=== PATIENT | female | born 1960 | race Caucasian/White ===

== ENCOUNTER 2020-11-29 08:19 | Emergency (ER) | payer OTHER, SELFPAY ==
[2020-11-29 08:21] VITALS: BP 145/98; PULSE 105; RESP 18; TEMP 36.2; O2SAT 98; BMI 25.9
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
== END 2020-11-29 09:50 | disposition home or self-care (01) ==
PROVIDERS: Emergency Provider Emergency Medicine; PCP Family Medicine
DX: S16.1XXA Strain of muscle, fascia and tendon at neck level, initial encounter (principal); S40.011A Contusion of right shoulder, initial encounter; V48.0XXA Car driver injured in noncollision transport accident in nontraffic accident, initial encounter; Z79.899 Other long term (current) drug therapy
CPT/HCPCS: 71046; 73030; 99284

== ENCOUNTER → 2022-03-15 | Outpatient (CLI) | payer OTHER, SELFPAY ==
[2022-03-15 13:07] LABS: CRP < 2.90 mg/L (0.0-3.0); Rheumatoid Factor < 10.0 IU/mL (<15)
[2022-03-15 13:25] LABS: Erythrocyte Sedimentation Rate 8 mm/hr (0-30)
[2022-03-16 16:17] LABS: ANTINUCLEAR ANTIBODIES DIRECT Negative (Negative)
== END | disposition home or self-care (01) ==
LOC: MFPLAB 09:46
PROVIDERS: PCP Family Medicine; Referring Provider Family Medicine; Visit Provider Family Medicine
DX: M79.89 Other specified soft tissue disorders (principal)
CPT/HCPCS: 36415; 85652; 86038; 86140; 86431

== ENCOUNTER → 2022-03-22 | Outpatient (CLI) | payer OTHER, SELFPAY ==
[2022-03-22 17:45] LABS: Absolute Lymphocyte Count 1.95 X10^3/uL (0.83-4.51); Absolute Neutrophil Count 3.1 X10^3/uL (2.0-7.7); Basophil# 0.08 X10^3/uL; Basophil% 1.4 % (0-1); Eosinophil# 0.11 X10^3/uL; Eosinophils% 1.9 % (0-5); Hematocrit 38.1 % (37-47); Hemoglobin 12.8 g/dL (12.0-15.0); Lymphocyte # 1.95 X10^3/ul (0.83-4.51); Lymphocyte % 34.5 % (19-41); Mean Corp Hgb Conc 33.6 g/dL (32-36); Mean Corpuscular Hgb 31.4 pg (27.0-32.0); Mean Corpuscular Volume 93.4 fL (81-99); Mean Platelet Vol. 10.2 fl (6.2-12.0); Monocyte% 7.1 % (0-10); NRBC Flagged by Analyzer 0 % (0-5); Neutrophil # 3.11 X10^3/uL (2.7-7.7); Neutrophil % 54.9 % (47-70); Platelet Count 282 K/mm3 (150-450); RBC Distribution Width CV 14.3 % (11.6-14.6); RBC Distribution Width SD 48.1 fl (35.1-43.9); Red Blood Count 4.08 M/mm3 (4.2-5.4); White Blood Count 5.7 K/mm3 (4.4-11.0)
[2022-03-22 18:00] LABS: Hemoglobin A1c 5.6 % (3.8-5.6)
[2022-03-22 18:08] LABS: ALB/GLOB Ratio 1.1 RATIO (0.9-2.4); AST(SGOT) 33 U/L (15-37); Alanine Aminotransfer ALT/SGPT 50 U/L (13-56); Albumin, Serum 3.4 g/dL (3.2-5.0); Alkaline Phosphatase 125 U/L (45-117); Anion Gap 6 (5-15); BUN 20 mg/dL (7-18); BUN/Creat Ratio 22.5 RATIO (10-20); Calcium,Total 8.2 mg/dL (8.5-10.1); Chloride 105 mmol/L (98-107); Creatinine, Serum 0.89 mg/dL (0.55-1.02); EST Glomerular Filtration Rate 69 mL/min (>60); Est Glom Filt Rate - Afr Amer 83 mL/min (>60); Globulin 3.2 g/dL (2.2-4.2); Glucose 136 mg/dL (74-106); Potassium 3.5 mmol/L (3.5-5.1); Protein, Total 6.6 g/dL (6.4-8.2); Sodium Level 139 mmol/L (136-145); Thyroid Stim Hormone (TSH) 0.99 uIU/mL (0.358-3.74)
[2022-03-22 18:18] LABS: Vitamin B12 503 pg/mL (211-911); Vitamin D,25 Hydroxy 32.3 ng/mL
== END | disposition home or self-care (01) ==
LOC: MFPLAB 15:51
PROVIDERS: PCP Family Medicine; Visit Provider Nurse Practitioner Family
DX: R20.0 Anesthesia of skin (principal)
CPT/HCPCS: 36415; 80053; 82306; 82607; 83036; 84443; 85025

== ENCOUNTER → 2022-04-13 | Outpatient (CLI) | payer OTHER, SELFPAY ==
[2022-04-13 10:42] LABS: Erythrocyte Sedimentation Rate 9 mm/hr (0-30)
[2022-04-13 11:17] LABS: CRP < 2.90 mg/L (0.0-3.0)
[2022-04-14 18:25] LABS: ANTINUCLEAR ANTIBODIES DIRECT Negative (Negative)
== END | disposition home or self-care (01) ==
LOC: MFPLAB 09:17
PROVIDERS: PCP Family Medicine; Referring Provider Family Medicine; Visit Provider Family Medicine
DX: L29.9 Pruritus, unspecified (principal)
CPT/HCPCS: 36415; 85652; 86038; 86140

== ENCOUNTER → 2022-06-12 | Outpatient (CLI) | payer OTHER, SELFPAY ==
--- NOTE | 2022-06-12 14:47 | NEURO ---
NCS and/or EMG Patient Report Ordering Doctor: Mason Valadez DATE OF SERVICE: 06/12/22 Indication: Bilateral hand numbness (left greater than right) for several months. Worse with sleep and activity. History of more chronic neck and right shoulder pain. Findings: Nerve conduction studies were performed in the right and left upper extremities. The right median motor study recording the abductor pollicis brevis showed a normal amplitude, prolonged distal latency and normal conduction velocity. The right ulnar motor study recording the abductor digiti minimi showed a normal amplitude, normal distal latency and normal conduction velocity. No conduction block or focal slowing was present across the elbow. The right median sensory response recording digit two showed a reduced amplitude, prolonged latency and slowed conduction velocity. The right ulnar sensory response recording digit five showed a normal amplitude, latency and conduction velocity. The right radial sensory response recording over the extensor snuff box showed a normal amplitude, latency and conduction velocity. The left median motor study recording the abductor pollicis brevis showed a slightly reduced amplitude, prolonged distal latency and slowed conduction velocity. The left ulnar motor study recording the abductor digiti minimi showed a normal amplitude, normal distal latency and normal conduction velocity. No conduction block or focal slowing was present across the elbow. The left median sensory response recording digit two was absent. The left ulnar sensory response recording digit five showed a normal amplitude, latency and conduction velocity. The left radial sensory response recording over the extensor snuff box showed a normal amplitude, latency and conduction velocity. Left median-ulnar lumbrical / interosseous motor latencies showed a prolonged median latency compared to the ulnar. Needle EMG of the right upper extremity and cervical paraspinal muscles was performed. No denervation was seen in any muscle. The right abductor pollicis brevis showed normal morphology, but mildly decreased recruitment. All other motor unit morphology, activation and recruitment patterns were normal. Needle EMG of the left upper extremity and cervical paraspinal muscles was performed. No denervation was seen in any muscle. Motor units in the abductor pollicis brevis were polyphasic, but otherwise unremarkable. All other motor unit morphology, activation and recruitment patterns were normal. Impression: This is an abnormal study. There is electrophysiologic evidence of median neuropathy across the wrist in both upper extremities (moderate on the left, mild on the right). These findings are compatible with the clinical diagnosis of carpal tunnel syndrome. In addition, there is no electrophysiologic evidence of superimposed cervical radiculopathy, brachial plexopathy or other entrapment neuropathy in either upper extremity. Jean Fuller D.O. Multi Select Codes Neurology Neurology Interp Codes: 42100-34 Musc test done w/n test comp (interp) (Qty:2) and 17724-10 Nr cndj test 13/> studies (interp)
== END | disposition home or self-care (01) ==
LOC: PSN 12:56
PROVIDERS: PCP Family Medicine; Visit Provider Family Medicine
DX: R20.2 Paresthesia of skin (principal)
CPT/HCPCS: 95886; 95913

== ENCOUNTER → 2022-07-05 | Outpatient (CLI) | payer OTHER, SELFPAY ==
--- NOTE | 2022-07-05 08:20 | BD_ITS ---
STUDY: DUAL ENERGY X-RAY ABSORPTIOMETRY / DXA REASON FOR EXAM: Female, 61 years old. M85.89 TECHNIQUE: Bone Mineral Density (BMD) measurements of lumbar spine and bilateral hips were obtained. COMPARISON: None. FINDINGS: Lumbar Spine (L1-L4): g/cm2 (0.746) / T-score (-2.5) / Z-score (-1.0) Findings are suggestive of osteopenia with a high fracture risk. Left Femur Total: g/cm2 (0.737) / T-score (-1.7) / Z-score (-0.7) Left Femoral Neck: g/cm2 (0.540) / T-score (-2.8) / Z-score (-1.5) Right Femur Total: g/cm2 (0.716) / T-score (-1.8) / Z-score (-0.9) Right Femoral Neck: g/cm2 (0.552) / T-score (-2.7) / Z-score (-1.4) BD/Dexa Bone Density Study IMPRESSION: The patient is considered osteoporotic as outlined below according to World Eliel Organization (WHO) criteria with a high fracture risk. Reference Information: The T-score is the number of standard deviations above or below the standard which is normal for young adults at their peak bone mineral density. The World Health Organization (WHO) interprets the T-scores as follows: Above -1 Normal bone density Between -1 and -2.5 Osteopenia Equal to / or below -2.5 Osteoporosis As a practical clinical guideline, osteopenia may be graded as follows: Mild -1 through -1.5 Moderate -1.6 through -2.0 Severe -2.1 through -2.4 The Z-score is the number of standard deviations above or below age-matched controls. A Z-score of less than -1.5 would be considered abnormal. References: 1. NIH Osteoporosis and Related Bone Diseases www osteo.org 2. International Society for Clinical Densitometry www iscd.org 3. National Osteoporosis Foundation www nof.org Electronically Signed: Neftaly Dai MD at 8:12 EST ,
== END | disposition home or self-care (01) ==
PROVIDERS: PCP Family Medicine; Visit Provider Family Medicine
DX: M85.89 Other specified disorders of bone density and structure, multiple sites (principal)
CPT/HCPCS: 77080

== ENCOUNTER 2022-09-29 14:14 | Outpatient (RCR) | payer OTHER, SELFPAY | END 2022-09-29 19:00 | disposition home or self-care (01) | LOC: PT 14:14 | PROVIDERS: PCP Family Medicine; Referring Provider Family Medicine; Visit Provider Family Medicine | DX: M81.0 Age-related osteoporosis without current pathological fracture (principal) ==

== ENCOUNTER 2022-10-18 07:37 | Day surgery (SDC) | payer OTHER, SELFPAY ==
[2022-10-18] VITALS (7 sets, daily range): BP systolic 100–139; BP diastolic 72–88; PULSE 55–67; RESP 16–18; TEMP 36.2–36.4; O2SAT 95–100; BMI 23.1
--- NOTE | 2022-10-18 08:03 | PCM.HP.STD ---
HPI - General HPI Narrative GRACE OBANDO, is a 62 F who presents for left hand Carpal tunnel release. Left wrist marked. No changes to history and physical exam. Patient wishes to proceed. Pros and cons risk and benefits discussed as well as postoperative recovery. No further questions. MR#: [id number] Acct: [id number] Name:GRACE PETTIT Rep #: [id number] : 1960 ? ? Provider: Dr. Mehran Chang MD Age/Sex:? 62/F ? ? Location: [facility] [place] Status: Signed Intake Vital Signs ? 11/30/2107:21 09/12/2310:30 09/22/2308:16 Height 5 ft 7 in 5 ft 7 in ? Weight: ? ? 150 lb Intake Visit Reasons:?BL HANDS Chief Complaint: bilateral carpal tunnel Accompanied by: Self Is patient in pain?: Yes Pain scale (1-10): 7 Allergies nickel Allergy (Verified 09/22/22 09:13) hives Medications dextroamphetamine-amphetamine ER 25 mg capsule,3 bead,ext release 24hr (Mydayis) ea PO 09/22/22 [History Confirmed 09/22/22] sumatriptan succinate 50 mg tablet ea PO 09/22/22 [History Confirmed 09/22/22] turmeric 400 mg capsule mg PO 09/22/22 [History Confirmed 09/22/22] PFSH Medical History?(Updated 09/22/22 @ 09:15 by Chanel Stone) Bilateral carpal tunnel syndrome Migraine Surgical History?(Updated 09/22/22 @ 09:16 by Chanel Stone) H/O abdominoplasty Hx of breast reduction, elective Social History?(Updated 09/22/22 @ 09:17 by Chanel Stone) Smoking Status:? Never smoker alcohol intake:? current HPI BL HANDS Details: Parts of this documentation were recorded by a scribe, this documentation accurately reflects the service provided and the decisions made by me, Dr. Mehran Chang MD 09/22/22 1085. GRACE OBANDO is a 62 year old F here today for bilateral carpal tunnel syndrome. Left side worse, RHD, started about a year ago, numb all the time worse and worse. Thought maybe the neck. Index and middle, somewhat ring, somewhat the thumb. Right side comes and goes, but chronically numb on the left side. Worse yesterday in the morning. 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 Ortho Exam General General: Yes no acute distress Neurologic: Yes alert and Yes oriented x3 Psychologic: Yes reasonable and appropriate Right Wrist/Hand Skin/Wound: Yes CDI, No Swelling, No Ecchymosis, Yes nail intact and Yes capillary refill normal Right Wrist: Yes ROM-Extension 0-60, ROM-Flexion 0-80, ROM-Pronation 0-80 and ROM-Supination 0-90; No Tinel's, Phalen's, Thenar Atrophy or Hypothenar Atrophy Motor: EPL: 5, FDP-2: 5, 1st Dorsal Interosseous: 5 and APB: 5 Sensation: Radial: I, Ulnar: I and Median: D WRIST: neg tinel at elbow Left Wrist/Hand Skin/Wound: No Swelling, No Ecchymosis, Yes nail intact, Yes capillary refill normal and No erythema A1 lisa trigger: No Left Wrist: Yes ROM-Extension 0-60, Yes ROM-Flexion 0-80, Yes ROM-Pronation 0-80 and Yes ROM-Supination 0-90; No Tinel's, No Phalen's, No Thenar Atrophy and No Hypothenar Atrophy Motor: EPL: 5, FDP-2: 5, 1st Dorsal Interosseous: 5 and APB: 5 Sensation: Radial: I, Ulnar: I and Median: D WRIST: neg tinels at elbow Supplemental Info Close SignExternal Correspondence (Scanned) 09/12/22 11:34 Neurology Assessment (Signed) Raffi Fuller - 06/12/22 14:54 ER Physician Documentation (Signed) Haroon Richardson - 11/29/20 09:38 ED Discharge Packet (Viewable) 11/29/20 09:37 ED Squad Report (Scanned) 11/29/20 09:15 Discharge Summary CONV (Scanned) 11/21/18 20:41 Addendum [facility]/Neurology [address] [place] [address] MR#:? [id number] Acct: [id number] Name: GRACE OBANDO Rep #: [id number] :? 1960 ?61 From: Raffi Fuller DO Referring Dr: ? ? Status:? REG CLI Location:? PSN Date:? 06/12/22 Sex: F C NCS and/or EMG Patient Report Ordering Doctor: Mason Valadez DATE OF SERVICE: 06/12/22 Indication: Bilateral hand numbness (left greater than right) for several months. Worse with sleep and activity. History of more chronic neck and right shoulder pain. Findings: Nerve conduction studies were performed in the right and left upper extremities. The right median motor study recording the abductor pollicis brevis showed a normal amplitude, prolonged distal latency and normal conduction velocity. The right ulnar motor study recording the abductor digiti minimi showed a normal amplitude, normal distal latency and normal conduction velocity. No conduction block or focal slowing was present across the elbow. The right median sensory response recording digit two showed a reduced amplitude, prolonged latency and slowed conduction velocity. The right ulnar sensory response recording digit five showed a normal amplitude, latency and conduction velocity. The right radial sensory response recording over the extensor snuff box showed a normal amplitude, latency and conduction velocity. The left median motor study recording the abductor pollicis brevis showed a slightly reduced amplitude, prolonged distal latency and slowed conduction velocity. The left ulnar motor study recording the abductor digiti minimi showed a normal amplitude, normal distal latency and normal conduction velocity. No conduction block or focal slowing was present across the elbow. The left median sensory response recording digit two was absent. The left ulnar sensory response recording digit five showed a normal amplitude, latency and conduction velocity. The left radial sensory response recording over the extensor snuff box showed a normal amplitude, latency and conduction velocity. Left median-ulnar lumbrical / interosseous motor latencies showed a prolonged median latency compared to the ulnar. Needle EMG of the right upper extremity and cervical paraspinal muscles was performed. No denervation was seen in any muscle. The right abductor pollicis brevis showed normal morphology, but mildly decreased recruitment. All other motor unit morphology, activation and recruitment patterns were normal. Needle EMG of the left upper extremity and cervical paraspinal muscles was performed. No denervation was seen in any muscle. Motor units in the abductor pollicis brevis were polyphasic, but otherwise unremarkable. All other motor unit morphology, activation and recruitment patterns were normal. Impression: This is an abnormal study. There is electrophysiologic evidence of median neuropathy across the wrist in both upper extremities (moderate on the left, mild on the right). These findings are compatible with the clinical diagnosis of carpal tunnel syndrome. In addition, there is no electrophysiologic evidence of superimposed cervical radiculopathy, brachial plexopathy or other entrapment neuropathy in either upper extremity. Jean Fuller D.O. Coding Level of Care Code Off vis,new,level 3 Diagnoses Bilateral carpal tunnel syndrome? G56.03 Assessment and Plan Assessment and Plan (1) Bilateral carpal tunnel syndrome: ?Status:?Acute ?Plan: 62-year-old female with bilateral carpal tunnel syndrome.? This is becoming worse more symptomatic on the left side with nerve conduction study evidence showing moderate carpal tunnel syndrome left.? We discussed the nonoperative management nighttime splinting versus cortisone injections rest ice anti-inflammatories activity modifications as well as cortisone injections and endoscopic or open carpal tunnel release.? This seems to be coming more progressive and severe with time the patient is desiring definitive surgical solution on the left and would like to start with nighttime splinting on the right.? Talked about the recovery associated with this 2 weeks to heal the incision 2 to 6 weeks before going back to heavy lifting and gripping.? She understands wishes to proceed with left endoscopic carpal tunnel release.? No further questions. Pros and cons risks and benefits were discussed with the patient including but not limited to infection, pain, stiffness, bleeding, damage to surrounding structures, neurovascular injury, recurrence or retear, failure or wear of hardware or fixation, instability, fracture, deep vein thrombosis and pulmonary embolism, anesthetic risks, , patient dissatisfaction, need for further surgery and other risks.? Patient understood and wished to proceed with surgery, and signed the informed consent documentation. [facility] Medical History (Updated 10/17/22 @ 08:51 by Divya Candelario) Anxiety Back pain Bilateral carpal tunnel syndrome Depression Injury of back Injury of head and neck Migraine Non-smoker Post-menopausal Wears glasses Home Medications sumatriptan succinate 50 mg tablet (Imitrex) 50 mg PO PRN PRN MIGRAINES 09/22/22 [History Last Taken Unknown] calcium 500 mg tablet 500 mg PO DAILY 10/17/22 [History Last Taken Unknown] cholecalciferol (vitamin D3) 25 mcg (1,000 unit) tablet (Vitamin D3) 25 mcg PO DAILY 10/17/22 [History Last Taken Unknown] fluoxetine 20 mg capsule 20 mg PO DAILY 10/17/22 [History Last Taken Unknown] lisdexamfetamine 30 mg capsule (Vyvanse) 30 mg PO DAILY 10/17/22 [History Last Taken Unknown] multivitamin 1 tab PO DAILY 10/17/22 [History Last Taken Unknown] valacyclovir 500 mg tablet 500 mg PO BID PRN HERPES 10/17/22 [History Last Taken Unknown] Allergy/AdvReac Type Severity Reaction Status Date / Time nickel Allergy hives Verified 10/18/22 07:55 Surgical History (Updated 10/17/22 @ 08:51 by Divya Candelario) H/O abdominoplasty Hx of breast reduction, elective Hx of surgical procedure Social History (Updated 09/22/22 @ 09:17 by Chanel Stone) Smoking Status: Never smoker alcohol intake: current
[2022-10-18] MEDS: Lactated Ringers 1,000 ML 15 ML IV (08:15)
[2022-10-18] MEDS: Cefazolin 2 GM in 0.9% Normal Saline 100 ML IV (08:41)
--- NOTE | 2022-10-18 09:06 | OP.PCM_ITS ---
Problems Associated Problem List Diagnoses (1) Bilateral carpal tunnel syndrome: Report of Operation Date of Procedure: 10/18/22 Pre-Operative Diagnosis: Left carpal tunnel syndrome Post-Operative Diagnosis: Same Surgery/Procedure Performed:: Left endoscopic carpal tunnel release Surgeon: Mehran Chang Type of Anesthesia: MAC/Supplemental/Local Anesthesiologist: Kory Sanders Estimated Blood Loss (mL): 5 Description of Procedure: Patient was brought to the operating room theater.? The patient was administered 2g iv ancef prior to the start of the procedure.? Placed supine on the operating room table.? Anesthesia induced.? SCDs on the legs.? Tourniquet applied to the left upper operative extremity, appropriately padded. Arm table used. Operative extremity prepped and draped in the usual sterile fashion with chlorhexidine- based prep solution allowing over 3 minutes drying time prior to draping.? Preoperative timeout performed to confirm the site patient and the surgery. Sterile Esmarch was used to exsanguinate the limb limb elevated tourniquet inflated to 250 mmHg.? I used the [employer] center line endoscopic carpal tunnel kit / technique. Exsanguinated limb. 3cc 0.25% bupivicaine at incision site. ? I made a transverse 2 cm incision in line with the? transverse wrist crease.? This was in line with the fourth digit.? I carried the dissection down through skin and subcutaneous tissue achieved meticulous hemostasis. Just ulnar to palmaris tendon.? I incised the antebrachial fascia.? I passed sequential dilators into the carpal tunnel along the radial border of the Guyon's canal aiming for the fourth digit with the hand in extension.? I used a synovial elevator to identify the transverse fibers of the transverse carpal tunnel ligament.? Passed the scope into the carpal tunnel. Once I had identified the full proximal and distal extent of the ligament I fully released the ligament under direct visualization by deploying the blade and slowly withdrawing the scope made sequential passes until I no longer felt tension as well as the entire extent of the ligament was released under direct visualization.? Sounded the tunnel with johnson tenotomy scissors, complete release, no bands. Arthroscope light was more visible through the skin. Pictures taken and saved. Wound thoroughly irrigated.? Tourniquet let down prior to end of the case and meticulous hemostasis achieved.? Thorough irrigation.? ? Incisions closed with 3-0 Monocryl for the skin.? Steri-Strips were applied after the skin was cleaned and dried. adaptic 4x4 gauze and trace. Patient woken up,? transferred off the operating room table and taken to postanesthetic care unit in stable condition. All sponge needle instrument counts were correct no complications.? Plan for the patient to be discharged home according to day surgery criteria when they are comfortable. Follow-up in the office in 2 days time. Gentle ROM hand and elbow no heavy lifting. Complications none Admit VTE Documentation VTE Present on Admission: No VTE Mechan Device Prophylaxis: SCD's VTE Pharm Prophylaxis ordered?: No Reason prophylaxis not ordered:: Treatment Not Indicated Procedures Musculoskeletal [id number]: Other Procedure See Report
--- NOTE | 2022-10-18 09:09 | DCINST_ITS ---
Discharge Instructions Diet Discharge Diet: No restrictions Activity Ice area for (Minutes): 10 Lifting Restrictions: finger and wrist rom ok, no heavy lifting or gripping Keep extremity elevated above heart level: Operative Extremity Dressing / Incision Call your doctor if your incision/area has: Continuous Slow Oozing, Sudden Increased Bleeding, Increased Pain/ Swelling, Increased Redness, Foul Smelling Discharge and Swelling at the incision site Remove Dressing in: leave in place till F/U Follow Up Care Please Follow Up With: Mehran Chang MD When: 2 days Test Results: Test results from this visit will be discussed in further detail at your follow- up appointment, if applicable. Discharge Plan Admission Attending Provider: Mehran Chang Primary Care Provider: Princess Scott Instructions Patient Instructions: Carpal Tunnel Release Surgery Discharge Orders/Prescriptions Prescriptions: No Action sumatriptan succinate [Imitrex] 50 mg tablet 50 mg PO PRN PRN (Reason: MIGRAINES) Label Comments: TAKE 1 TABLET BY MOUTH EVERY DAY NEEDED .MAY REPEAT DOSE IN 2 HOURS NEEDED multivitamin Tablet 1 tab PO DAILY calcium 500 mg Tablet 500 mg PO DAILY valacyclovir 500 mg tablet 500 mg PO BID PRN (Reason: HERPES) Label Comments: TAKE 1 TABLET BY MOUTH TWICE A DAY fluoxetine 20 mg capsule 20 mg PO DAILY Label Comments: TAKE 1 CAPSULE BY MOUTH EVERY DAY cholecalciferol (vitamin D3) [Vitamin D3] 25 mcg (1,000 unit) Tablet 25 mcg PO DAILY Vyvanse 30 mg capsule 30 mg PO DAILY Label Comments: take 1 capsule by mouth every morning Referrals / Follow Up: Princess Scott DO [Primary Care Provider] - Mehran Chang MD [Med Staff - Active Staff] - Disposition Disposition (needs filled in before D/C Order can be placed): Home, Self Care
== END 2022-10-18 10:46 | disposition home or self-care (01) ==
LOC: SDC 07:38 → AC 07:39
PROVIDERS: PCP Family Medicine; Referring Provider Orthopaedic Surgery Sports Medicine; Visit Provider Orthopaedic Surgery Sports Medicine
PROC: (CPT 29848; principal; 2022-10-18 08:40)
DX: G56.03 Carpal tunnel syndrome, bilateral upper limbs (principal); G43.909 Migraine, unspecified, not intractable, without status migrainosus; F41.9 Anxiety disorder, unspecified; F32.A Depression, unspecified; Z79.899 Other long term (current) drug therapy
CPT/HCPCS: 29848; 01830; J7120; J2405

== ENCOUNTER → 2023-08-17 | Outpatient (CLI) | payer OTHER, SELFPAY ==
[2023-08-17 12:17] LABS: Hematocrit 40.3 % (37-47); Hemoglobin 13.3 g/dL (12.0-15.0); Mean Corpuscular Hgb 30.2 pg (27.0-32.0); Mean Corpuscular Volume 91.4 fL (81-99); Mean Platelet Vol. 10.1 fl (6.2-12.0); Platelet Count 250 K/mm3 (150-450); RBC Distribution Width CV 13.9 % (11.6-14.6); RBC Distribution Width SD 46.8 fl (35.1-43.9); Red Blood Count 4.41 M/mm3 (4.2-5.4); White Blood Count 4.5 K/mm3 (4.4-11.0)
[2023-08-17 13:24] LABS: AST(SGOT) 37 U/L (15-37); Alanine Aminotransfer ALT/SGPT 41 U/L (13-56); Albumin, Serum 3.6 g/dL (3.2-5.0); Alkaline Phosphatase 105 U/L (45-117); Anion Gap 5 (5-15); BUN 24 mg/dL (7-18); BUN/Creat Ratio 25.8 RATIO (10-20); Calcium,Total 9.3 mg/dL (8.5-10.1); Chloride 108 mmol/L (98-107); Cholesterol 267 mg/dL (200); Creatinine, Serum 0.93 mg/dL (0.55-1.02); EST Glomerular Filtration Rate 65 mL/min (>60); Est Glom Filt Rate - Afr Amer 78 mL/min (>60); Globulin 3.5 g/dL (2.2-4.2); Glucose 95 mg/dL (74-106); High Density Lipoprotein 113 mg/dL; Potassium 4.4 mmol/L (3.5-5.1); Protein, Total 7.1 g/dL (6.4-8.2); Sodium Level 140 mmol/L (136-145); Thyroid Stim Hormone (TSH) 1.28 uIU/mL (0.358-3.74); Triglycerides 48 mg/dL; Very Low Density Lipoprotein 10 mg/dL (5-40)
[2023-08-17 14:01] LABS: Hemoglobin A1c 5.5 % (3.8-5.6)
== END | disposition home or self-care (01) ==
PROVIDERS: PCP Family Medicine
DX: R53.83 Other fatigue (principal); Z79.899 Other long term (current) drug therapy
CPT/HCPCS: 36415; 80053; 80061; 83036; 84443; 85027

== ENCOUNTER → 2024-07-22 | Outpatient (CLI) | payer OTHER, SELFPAY ==
[2024-07-22 20:09] LABS: Luteinizing Hormone 61.3 mIU/mL
[2024-07-24 08:09] LABS: PROGESTERONE 0.1 ng/mL (.)
[2024-07-26 14:08] LABS: Estrogen, Total, Serum 63 pg/mL (40-244)
[2024-07-26 21:12] LABS: HPV APTIMA, High Risk Negative (Negative)
[2024-07-29 07:37] LABS: HPV Reflexed? YES, CHARGE PATIENT
== END | disposition home or self-care (01) ==
PROVIDERS: PCP Family Medicine
DX: R23.2 Flushing (principal); Z12.4 Encounter for screening for malignant neoplasm of cervix
CPT/HCPCS: 36415; 82672; 83001; 83002; 84144; 87624; 88175; G0145

== ENCOUNTER 2024-10-31 08:30 | Outpatient (RCR) | payer OTHER, SELFPAY ==
--- NOTE | 2024-07-25 09:58 | HP.PTEVAL_ITS ---
Patient's Visit Information Visit Information Visit Information: GRACE OBANDO is a 63 year old F referred to Physical Therapy by ALEC Leiva with a diagnosis of OSTEOPOROSIS. Date of Evaluation: 07/25/24 Physical Therapist: Americo Arcos, PT, Cert MDT, OCS Visit Plan Frequency: 2x /Week Duration: 4 Weeks Plan: PT INTERVENTIONS WB EXERCISES STRENGTHENING ,FUNCTIONAL STRENGTHENING ,HIP STRENGTHENING ,AND POSTURAL EX'S Subjective Subjective: This 63 y/o female presents to physical therapy with osteoporosis . Patient was recently diagnosed with osteoporosis had bone density 2022 showed high risk for fracture in lumbar and femur. Patient doesn't want to take medication or injection for osteoporosis. Except patient takes calcium adn Vitamin D and diet. Patient denies pain except knee. Denies paresthesia/tingling -. Patient sleeping good. Patient has no recent bone dentistry test. No recent falls. Patient has no exercise routine. Does dog shows. Patient goals void medication/injection. SOCIAL: VOCATION: retired HOBBIES: Training dogs Objective Objective: POSTURE: WFL GAIT: reciprocal pattern PALTION: unremrkable NEURO: intact MMT: BUE GROSSLY 5/5 ,QUADS/HAMS /ANKLE 4/5 ( PEAK FORCE) hip flexion 24.8 right ,left 23.9 ,hip abduction 21.9 right ,left 22.1 LUMBAR ROM: flexion WFL ,extension WFL ,side glides WFL THORACIC ROM: flexion/extension/rotation WFL Balance/Special Test Scores Lower Extremity Functional Score: 65 Goals Goal 1:: Patient to be I with osteoporosis program Goal Time Frame: 4-6 Weeks Goal 2:: Patient to demonstrate 80% improvement with dog showing with improved agility Goal Time Frame: 4-6 Weeks Goal 3:: Patient to improve LFES score by 5 points to improve QOL Goal Time Frame: 4-6 Weeks Goal 4:: Patient to improve peak force hips by 5-10 # strength to improve function Goal Time Frame: 4-6 Weeks Rehabilitation Potential Physical Therapy Diagnosis: This patient has osteoporosis bone density test demonstrated high risk for fracture with weakness hips thus benefit from skilled PT Rehabilitation Potential: Good Anticipated Interventions Patient/Client Instruction: Educate patient on: Condition and Plan of Care For the Purpose of:: To improve muscle performance and motor function, To increase tolerance to activity/condition/position, To improve ability of physical actions for home/community/work/leisure, To improve health of tissue, To decrease soft tissue restriction, To increase flexibility/ROM, To improve e ndurance, To reduce risk of recurrence and To improve tolerance to ADL's Therapeutic Exercise to Include: Strength training, Power training, Endurance training, Agility training, Postural training and Dynamic Lumbar Stabilization Comment: HIP For the Purpose of:: To improve muscle performance and motor function, To increase tolerance to activity/condition/position, To improve ability of physical actions for home/community/work/leisure, To improve health of tissue, To decrease soft tissue restriction, To improve endurance, To improve balance and To reduce risk of recurrence Text: Thank you for the opportunity to evaluate your patient. For Medicare and Medicare HMO plans, please review the plan of care and approve it. It will need to be FAXED BACK to us at [phone] for Medicare purposes. For Medicare only, by signing this I certify the plan of care. Please let me know if there are questions or concerns regarding this plan of care. Physician Signature: Date:
--- NOTE | 2025-01-19 16:47 | HP.PT.NRP ---
Patient Information Patient Information: GRACE OBANDO was seen in my office for initial evaluation on 07/25/24. The following Plan of Care was established for this patient: POC Established Initial Frequency: 2x /Week Initial Duration: 4 Weeks Anticipated Interventions Patient/Client Instruction: Educate patient on: Condition and Plan of Care For the Purpose of:: To improve muscle performance and motor function, To increase tolerance to activity/condition/position, To improve ability of physical actions for home/community/work/leisure, To improve health of tissue, To decrease soft tissue restriction, To increase flexibility/ROM, To improve endurance, To reduce risk of recurrence and To improve tolerance to ADL's Therapeutic Exercise to Include: Strength training, Power training, Endurance training, Agility training, Postural training and Dynamic Lumbar Stabilization For the Purpose of:: To improve muscle performance and motor function, To increase tolerance to activity/condition/position, To improve ability of physical actions for home/community/work/leisure, To improve health of tissue, To decrease soft tissue restriction, To improve endurance, To improve balance and To reduce risk of recurrence Last Seen Last Seen: This patient was last seen in our office . Pertinent comments regarding their Physical therapy will appear below: Patient seen for PT for osteoporosis thus d/c to HEP At this point I will be discontinuing this patient from physical therapy. I would be happy to see this patient again in the future if found appropriate by the physician. Thank you! Americo Arcos, PT, Cert MDT, OCS Balance/Gait/Functional tests Balance/Special Test Scores Lower Extremity Functional Score: 55
== END 2024-10-31 19:00 | disposition home or self-care (01) ==
LOC: PT 08:30
PROVIDERS: PCP Family Medicine
DX: M81.0 Age-related osteoporosis without current pathological fracture (principal)
CPT/HCPCS: 97110; 97162; 97530

== ENCOUNTER → 2025-03-31 | Outpatient (CLI) | payer OTHER, SELFPAY ==
[2025-03-31 12:39] LABS: Hematocrit 42.4 % (37-47); Hemoglobin 14.0 g/dL (12.0-15.0); Immature Granulocytes Count 0.010 X10^3/uL (0.0-0.0); Mean Corp Hgb Conc 33.0 g/dL (32-36); Mean Corpuscular Volume 92.4 fL (81-99); Mean Platelet Vol. 10.5 fl (6.2-12.0); NRBC Flagged by Analyzer 0 % (0-5); Platelet Count 295 K/mm3 (150-450); RBC Distribution Width CV 14.1 % (11.6-14.6); RBC Distribution Width SD 47.8 fl (35.1-43.9); Red Blood Count 4.59 M/mm3 (4.2-5.4); White Blood Count 6.5 K/mm3 (4.4-11.0)
[2025-03-31 13:03] LABS: AST(SGOT) 36 U/L (<=31); Alanine Aminotransfer ALT/SGPT 30 U/L (<=34); Albumin, Serum 4.6 g/dL (3.4-4.8); Alkaline Phosphatase 121 U/L (35-104); Anion Gap 11 (5-15); BUN 16 mg/dL (4-19); BUN/Creat Ratio 18.4 RATIO (10-20); Calcium,Total 9.5 mg/dL (7.6-11.0); Carbon Dioxide 28.3 mmol/L (21.0-32.0); Chloride 101 mmol/L (98-108); Cholesterol 262 mg/dL (<=200); Globulin 3.0 g/dL (2.2-4.2); Glucose 88 mg/dL (70-99); Low Density Lipoprotein Calc. 135 mg/dL; Potassium 4.4 mmol/L (3.3-5.1); Triglycerides 51 mg/dL; Very Low Density Lipoprotein 10 mg/dL (5-40); cholesterol:hdl ratio screen 2.20
== END | disposition home or self-care (01) ==
LOC: MTLAB 09:46
PROVIDERS: PCP Family Medicine; Referring Provider Family Medicine; Visit Provider Family Medicine
DX: F41.1 Generalized anxiety disorder (principal); E78.5 Hyperlipidemia, unspecified; Z13.1 Encounter for screening for diabetes mellitus
CPT/HCPCS: 36415; 80053; 80061; 83036; 84443; 85025